=== PATIENT | male | born 1980 | race Caucasian/White ===

== ENCOUNTER 2023-06-24 18:46 | Emergency (ER) | payer BC, OTHER ==
[2023-06-24] MEDS: Ibuprofen 800 MG Tab PO ONE (22:51)
[2023-06-24 22:57] VITALS: BP 101/67; PULSE 67
== END 2023-06-24 22:57 | disposition home or self-care (01) ==
LOC: JD.ED 18:46
DX: S61.237A Puncture wound without foreign body of left little finger without damage to nail, initial encounter (principal); T50.Z95A Adverse effect of other vaccines and biological substances, initial encounter; I10 Essential (primary) hypertension; E78.00 Pure hypercholesterolemia, unspecified; J45.909 Unspecified asthma, uncomplicated; Z79.51 Long term (current) use of inhaled steroids; Z79.899 Other long term (current) drug therapy; X58.XXXA Exposure to other specified factors, initial encounter
CPT/HCPCS: 73130-26-LT; 73130-LT; 99283; A9270-GY